=== PATIENT | female | born 1990 | race Caucasian/White ===

== ENCOUNTER 2021-06-27 09:59 | Emergency (ER) | payer SELFPAY ==
[~2021-06-27] VITALS: Ht 167.6 cm; Wt 58.8 kg
[2021-06-27] MEDS ORDERED: IBUPROFEN 600MG TABLET PO ONE (10:45)
[2021-06-27] MEDS ORDERED: LIDOCAINE HCL/PF 1% 10 MG/ML 5ML VIAL INFIL ONE (10:45)
[2021-06-27] MEDS ORDERED: BACITRACIN ZINC OINT UDPKT TOP ONE (10:45)
[2021-06-27 10:46] VITALS: BP 128/74
[2021-06-27] MEDS ORDERED: BO1 TP (11:16)
[2021-06-27] MEDS ORDERED: IBUP-2029 MT (11:16)
== END 2021-06-27 11:36 | disposition home or self-care (01) ==
LOC: ER 10:22
DX: S61.211A Laceration without foreign body of left index finger without damage to nail, initial encounter (principal); W26.8XXA Contact with other sharp object(s), not elsewhere classified, initial encounter; Y93.89 Activity, other specified; Y92.89 Other specified places as the place of occurrence of the external cause; Y99.8 Other external cause status; Z98.890 Other specified postprocedural states
CPT/HCPCS: 12002; 99283; J3490; Z7610

== ENCOUNTER 2021-06-29 10:56 | Emergency (ER) | payer SELFPAY ==
[~2021-06-29] VITALS: Ht 167.6 cm; Wt 48.0 kg
[~2021-06-29 10:56] MED LIST: BO1 TP; IBUP-2029 MT
[2021-06-29 12:38] VITALS: BP 121/87
== END 2021-06-29 13:25 | disposition home or self-care (01) ==
LOC: ER 10:56
DX: Z48.00 Encounter for change or removal of nonsurgical wound dressing (principal)
CPT/HCPCS: 99281

== ENCOUNTER 2021-07-02 10:53 | Emergency (ER) | payer MEDICAID ==
[~2021-07-02] VITALS: Ht 167.6 cm; Wt 68.0 kg
[2021-07-02 11:45] VITALS: BP 112/78
== END 2021-07-02 11:45 | disposition home or self-care (01) ==
LOC: ER 10:53
DX: Z48.00 Encounter for change or removal of nonsurgical wound dressing (principal)
CPT/HCPCS: 99281

== ENCOUNTER 2021-07-09 11:21 | Emergency (ER) | payer MEDICAID ==
[~2021-07-09] VITALS: Ht 167.6 cm; Wt 53.0 kg
[2021-07-09] MEDS ORDERED: REGADENOSON 0.4 MG/5 ML IV ONE (13:00)
[2021-07-09] MEDS ORDERED: BACITRACIN ZINC OINT UDPKT TOP ONE (15:15)
[2021-07-09 16:23] VITALS: BP 112/78
== END 2021-07-09 16:23 | disposition home or self-care (01) ==
LOC: ER 11:21
DX: Z48.02 Encounter for removal of sutures (principal)
CPT/HCPCS: 99282; J2785